=== PATIENT | female | born 1940 | race Caucasian/White ===

== ENCOUNTER 2016-07-02 11:22 | Day surgery (SDC) | payer MEDICARE, OTHER ==
[~2016-07-02 11:22] MED LIST: ATOR80TA PO; CITA40TA PO; CLOB15CR3 TOP; CYCL5TAB PO; EZET10TA PO; FLUT16SP NS; GABA800T PO; HYDR-3740 PO; LEVO88TA3 PO; LISI-567 PO; MULT-1018 PO; OMEG1CAP56 PO; RANI150T11 PO; RITUX IV
[2016-07-03] MEDS ORDERED: OMEP40CA36 PO (08:54)
== END 2016-07-02 23:59 | disposition home or self-care (01) ==
LOC: SAS 11:22
PROVIDERS: ATTEND Orthopaedic Surgery
DX: T84.020A Dislocation of internal right hip prosthesis, initial encounter (principal); Z53.8 Procedure and treatment not carried out for other reasons

== ENCOUNTER 2016-07-03 08:20 | Inpatient (IN) | payer MEDICARE, OTHER ==
[2016-07-03] VITALS (15 sets, daily range): BP systolic 97–148; BP diastolic 51–75; PULSE 75–97; RESP 13–21; O2SAT 93–98
[~2016-07-03] VITALS: Ht 156.2 cm; Wt 71.9 kg
[~2016-07-03 08:20] MED LIST changes: +CeFAZolin Inj 2 GM in IV Premix 1 EACH IV ONE; +Vancomycin Inj 1,000 MG in IV Premix 1 EACH IV ONE
[2016-07-03] MEDS ORDERED: OMEP40CA36 PO (08:54)
[2016-07-03] MEDS: Lactated Ringer's 1,000 ML IV SCH ×3 (09:07→16:19)
--- NOTE | 2016-07-03 10:08 | PCM.HPANE ---
Patient Data Date of Service: July 03, 2016 Surgeon Admitting Provider: Attending Provider:Gagan Rice DO Primary Care Physician:Elza Lopez Other Provider:Evelina Johansen Anesthesia Reason for Visit Right Hip Instability Ht/WT & BMI Height (Feet): 5 Height (Inches): 1.50 Weight (Kilograms): 71.9 Body Mass Index 29.00 Allergies Coded Allergies: oxycodone (Verified Allergy, Intermediate, CONFUSION, 04/04/16) Sulfa (Sulfonamide Antibiotics) (Verified Allergy, Unknown, UNKNOWN, ) codeine (Verified Allergy, Unknown, UNKNOWN, 04/04/16) cyproheptadine HCl (Unverified Allergy, Unknown, UNKNOWN, 04/04/16) propoxyphene HCl (Unverified Allergy, Unknown, UNKNOWN, 04/04/16) baclofen (Unverified Adverse Reaction, Severe, MUSCLE WEAKNESS,DIZZINESS, 04/04/16) hydrocodone bitartrate (Verified Adverse Reaction, Severe, itchy-take with benadryl, 04/04/16) hydromorphone (Verified Adverse Reaction, Severe, RESP. DEPRESSION, ) morphine (Verified Adverse Reaction, Severe, CONFUSION, 04/04/16) Past Anesthesia History Anesthesia History: Denies:: Abnormal Airway, Anesthesia Reactions, Difficult Intubation, Fam Anesthesia Reaction, Fam Malignant Hypertherm, Malignant Hyperthermia Diabetes History Hx Diabetes?: No MRSA MRSA: No Medications Blood Thinner: Aspirin Home Meds Incl Beta Peyton: No Reported Medications Omeprazole 40 Mg Capsule.dr40 Mg PO DAILY Ref 0 07/03/16 Ezetimibe (Zetia)10 Mg Pucuaz07 Mg PO DAILY 30 Days Ref 0 06/28/16 Ranitidine (Zantac)150 Mg Wlejih639 Mg PO BID 06/28/16 Levothyroxine (Synthroid)88 Mcg Smhgxg22 Mcg PO DAILY Ref 0 06/28/16 Rituximab (Rituxan)100 Mg/10 Ml Vial1,000 Mg IV y9rstfgk last infusion 03/201606/28/16 Gabapentin (Neurontin)800 Mg Zdyiix537-5,600 Mg PO DAILY PRN For Pain 30 Days Ref 0 06/28/16 Gabapentin (Neurontin)800 Mg Tablet1,600 Mg PO HS 30 Days Ref 0 06/28/16 Multivitamin (Multi Vitamin Daily)1 Each Tablet1 Each PO DAILY 30 Days Ref 0 06/28/16 Lisinopril 20 Mg Tytwql80 Mg PO DAILY 30 Days Ref 0 06/28/16 Hydrocodone-Acetaminophen 10-325 mg 1 Each Tablet1 Tablet PO DAILY PRN For Pain Ref 0 06/28/16 Fluticasone Propionate (Fluticasone Propionate Nasal)16 Gm [place].susp1 [place] NS BID #16 GM Ref 0 06/28/16 Many-3 Fatty Acids/Fish Oil (Many 3 1,000 mg Softgel)1 Each Capsule1 Each PO DAILY 06/28/16 Cyclobenzaprine 5 Mg Tablet5 Mg PO TID PRN Spasm 06/28/16 Clobetasol Propionate/Emoll (Clobetasol Emollient 0.05% Crm)15 Gm Cream..g.1 Appl TOP BID PRN skin irritation #1 TUBE 06/28/16 Citalopram Hydrobromide (Celexa)40 Mg Szcqyb69 Mg PO DAILY Ref 0 06/28/16 Atorvastatin (Lipitor)80 Mg Gbjuyr38 Mg PO DAILY Ref 0 06/28/16 Discontinued Reported Medications Ezetimibe (Zetia)10 Mg Ewnkdt32 Mg PO HS 30 Days Ref 0 02/08/16 Cyanocobalamin/Folic Acid (Vitamin U57-Ptpjw Acid Tablet)1 Each Tablet1 Each PO DAILY 02/07/16 Aspirin 325 Mg Etoqsb393 Mg PO DAILY 02/07/16 Levothyroxine 88 Mcg Gfsfjv79 Mcg PO DAILY #90 02/07/16 Rituximab (Rituxan)100 Mg/10 Ml VialUnknown Dose IV every 6 months 02/07/16 Docosahexanoic Acid/Epa (Fish Oil Concentrate Softgel)1 Each Capsule1 Capsule PO DAILY 02/07/16 Hydrocodone-Acetaminophen 10-325 mg 1 Each Tablet1 Tab PO HS #90 02/07/16 Cyclobenzaprine 5 Mg Tablet5 Mg PO TID PRN Spasm 02/07/16 Clobetasol Propionate 15 Gm Oint...g.15 Gm TP DAILY PRN rash 02/07/16 Citalopram 40 Mg Rfwdks90 Mg PO QAM #90 02/07/16 Multivitamin (Multi Vitamin Daily)1 Each Tablet1 Each PO DAILY 30 Days Ref 0 07/01/14 Lisinopril 20 Mg Tvenzy08 Mg PO DAILY 30 Days Ref 0 07/01/14 Atorvastatin Calcium 80 Mg Pwdfzf62 Mg PO HS 30 Days Ref 0 10/22/13 Discontinued Scripts Gabapentin (Neurontin)800 Mg Tablet1,600 Mg PO HS 30 Days Ref 0 Prov:BISHOP SILVA DO 02/07/16 History History of ENT Problems?: Yes HEENT History: Positive for:: Cataracts Dysphagia (MILD) Sinus Problem (HX of infections) Denies:: Abnormal Airway Difficult Intubation Hearing Problem Denture Type: None Teeth Condition: Within Normal Limits Hx of Heart Problems?: Yes Cardiovascular History: Positive for:: Heart Murmur Valvular Heart Disease (echo 2014- ef 75-80%) Denies:: AICD Atrial Fibrillation Cardiac Surgery Chest Pain Congestive Heart Failure Edema Hypertension Irregular Heartbeat Pacemaker Thrombophlebitis Hx of Respiratory Problem?: Yes Respiratory History: Denies:: Asthma COPD Chest Surgery Cough Dyspnea Emphysema Hemoptysis Oxygen Administration Pneumonia (hx of) Tuberculosis Use of C-PAP Machine Hx Neurologic Problems?: No Neurological History: Denies:: CVA Dementia Multiple Sclerosis Parkinson's Disease Seizures Hx of GI Problems?: Yes Other GI Pertinent History: prior hx of collagenous colitis Hx of Problems?: Yes Genitourinary History: Positive for:: Kidney Stones (20 years ago) Denies:: HX of Hemodialysis (CKD III) Urinary Tract Infection (past hx of, not current) HX of Peritoneal Dialysis: No Female Hx: Positive for:: Problems with Breasts? (lump, biopsied 15 years ago) Denies:: Currently (post menopausal) Endometriosis Pelvic Inflammatory Skin History: Positive for:: History Skin Disorders? (pt reports lichens sclerosis, eczema) Denies:: Pressure Ulcers Hx Musculoskeletal Problems?: Yes Musculoskeletal History: Positive for:: Back Injury (Lami L3-4- still chronic back pain) Degenerative Joint Joint Replacement (R knee, R hip, L humerus) Musculoskeletal Trauma (repetetive dislocation right hip-current admission problem) Rheumatoid Arthritis (managed with rituxan infusion- last dosed mar 2016) Hx of Psycho/Social Problems?: Yes Psycho Social History: Positive for:: Anxiety Denies:: Bipolar Disorder Hx Depression Suicide Attempt Hx Surgeries?: Yes (lami, right rotator cuff, right hip arthroplasty- 4 relocations) Hx Any Other Health Problems?: Yes Other History: Positive for:: Hospitalization (Pneumonia; Childbirth) Thyroid Disease Denies:: Cancer Endocrine Disease History Blood Transfusions: Denies:: Blood Transfuse Reaction Blood Transfusions Hx Diabetes: No Hx Alcohol Use: NoHx Substance Use: No Smoking Status: Former Smoker Have You Smoked inLast 12 mo: No Stop/Bang S-Snoring: Do You Snore Loudly: No T-Tired: feel tired, fatigued: Yes O-Obsered: Observed not breath: No P-Blood Pressure: treated: Yes B- Body Mass Index > 35 kg/m2: No A- Age over 50: Yes N- Neck Large Circumference: No G- Gender Male: No ANNIA Total Score: 3 ANNIA Risk Assessment: High Risk, =/>3 Yes Risk Assessment Category Category 1A: Patient has history of documented sleep apnea, and HAS NOT received any narcotic, sedative or anesthesia administration during this stay. Category 1B: Patient has history of documented sleep apnea, and HAS received any narcotic , sedative or anesthesia administration during this stay Category 2: Patient has SUSPECTED Obstructive Sleep Apnea, and HAS received any narcotic , sedative or anesthesia administration during this stay. Category 3: Patient has SUSPECTED Obstructive Sleep Apnea and HAS NOT received narcotic, sedative or anesthesia administration during this stay. Category 4: Outpatient in Procedural Areas with known sleep apnea or who screen positive for High Risk via the STOP/BANG questionnaire. Exam Exam Vital Signs Vital Signs Date Time Temp Pulse Resp B/P Pulse Ox O2 Delivery O2 Flow Rate FiO2 07/03/16 08:44 36.4 81 16 121/60 96 Room Air General Appearance: Alert, Oriented X3, Cooperative, No Acute Distress HEENT/AIRWAY: MP 2 Lungs: Normal Air Movement Heart: Exam Unremarkable Plan Impression Patient chart reviewed, patient interviewed and anesthestic plan with risks, benefits, and alternatives discussed, and informed consent obtained. ASA Physical Status: ASA2 Mod Systemic Disease Anesthetic Plan: SAB Bene/Risks/Altern/Consents: Yes HP Complete Prior to Induction: Yes Natalio Conde MD July 03, 2016 09:13
[2016-07-03] MEDS ORDERED: Bupivacaine Liposome 1.3% 20 mL Inj INFILTRATE ONE (10:24)
[2016-07-03] MEDS ORDERED: Sodium Chloride Bacteriostatic 30 mL Inj INJ ONE (10:24)
[2016-07-03] MEDS ORDERED: Bupivacaine 0.5%/EPI 50 mL Inj INFILTRATE ONE (10:24)
[2016-07-03] MEDS ORDERED: Bupivacaine Liposome 1.3% 20 mL Inj ONE (10:33)
[2016-07-03] MEDS ORDERED: Tranexamic Acid 100 mg/mL 10 mL Inj ONE ×2 (10:35)
[2016-07-03] MEDS ORDERED: 0.9% Sodium Chloride 100 ML ONE ×2 (10:36)
[2016-07-03] MEDS ORDERED: Lactated Ringer's 1,000 ML IV ONE (12:34)
[2016-07-03] MEDS ORDERED: Magnesium Hydroxide 10 mL Oral Concentration PO PRN (12:55)
[2016-07-03] MEDS ORDERED: diphenhydrAMINE 25 mg Capsule PO PRN (12:55)
[2016-07-03] MEDS ORDERED: Polyethylene Glycol (PEG) 17 Gm Powder PO PRN (12:55)
[2016-07-03] MEDS ORDERED: Ondansetron 2 mg/mL 2 mL Inj IVPUSH PRN ×2 (12:55→13:50)
[2016-07-03] MEDS ORDERED: Acetaminophen IV 1,000 MG in IV Premix 1 EACH IV PRN (12:55)
[2016-07-03 13:09] LABS: APPEARANCE,URINE HAZY (CLEAR,HAZY); COLOR,URINE STRAW (YELLOW); OCCULT BLOOD,URINE NEGATIVE (NEGATIVE); PH,URINE 6.5 (5.0-8.0); UROBILINOGEN,URINE NORMAL (NORMAL)
[2016-07-03] MEDS ORDERED: fentaNYL-PF 50 mCg/mL 2 mL Inj ONE ×2 (13:34→15:25)
[2016-07-03] MEDS ORDERED: Lactated Ringer's 1,000 ML IV SCH (13:47)
[2016-07-03] MEDS ORDERED: Lactated Ringer's 500 ML IV PRN (13:47)
[2016-07-03] MEDS ORDERED: HYDROmorphone 1 mg/mL Inj IVPUSH PRN ×3 (13:50→15:55)
[2016-07-03] MEDS: fentaNYL-PF 50 mCg/mL 2 mL Inj IVPUSH PRN ×3 (13:50→14:27)
[2016-07-03] MEDS ORDERED: Phenylephrine 10,000 mCg/mL Inj IVPUSH PRN (13:50)
[2016-07-03] MEDS ORDERED: Dexamethasone 4 mg/mL Inj IVPUSH PRN (13:50)
[2016-07-03] MEDS ORDERED: MetoCLOpramide 5 mg/mL 2 mL Inj IVPUSH PRN (13:50)
[2016-07-03] MEDS ORDERED: EPHEDrine Sulfate 50 mg/mL Inj IVPUSH PRN (13:50)
--- NOTE | 2016-07-03 14:03 | OP ---
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 PROCEDURE: Revision, right total hip arthroplasty. SURGEON: Gagan Rice DO SENIOR TECHNICAL ANALYST: Deb Wooten PA-C. INDICATIONS: Patient is a 76-year-old female, who underwent a right total hip arthroplasty in July 2012. She has had multiple episodes of instability since that time which has been quite disabling for her and she wished to proceed with a revision right total hip arthroplasty. We performed an aspiration of the hip to rule out infection and discussed the risks, benefits, and possible complications of surgery including, but not limited to injury to nerves and vessels, infection, bleeding, incomplete relief of symptoms, recurrent instability. The patient had good understanding. All questions were answered and she wished to proceed. A instructor adjunct surgical technician was required for the successful completion of this procedure. PROCEDURE IN DETAIL: The patient was brought to the operating room. She was given a preoperative antibiotic and 1 g TXA preoperatively. Placed comfortably into the lateral decubitus position. The right hip was sterilely prepped and draped. An incision was made using the distal portion of her previous incision and the proximal portion slightly more anterior. Dissection was carefully carried to the subcutaneous tissue. Electrocautery was used for hemostasis. The iliotibial band was incised over the lateral aspect of the femur and the Charnley retractor was then placed. A split was then made in the gluteus medius between the junction of the anterior one-third, posterior two-thirds, and Hohmann retractors were placed on either side of the femoral neck. An anterior sleeve of tissue was then released off of the proximal femur and a triangular portion of capsule was removed. The hip was then dislocated and the femoral head was removed with a tamp. During this time, it was noted that the patient had a defect in the posterior capsule, about 3 cm in size, which was likely contributing to her instability. I then removed the soft tissue about the acetabular component and placed retractors. Used a large fragment screw in order to pry out the acetabular polyethylene liner. I then trialed the hip with a +7 lateralized liner as I felt that the main problem with instability was due to lack of offset. We again placed a -3/32 head with the lateralized liner. This allowed for excellent range of motion and great stability throughout her range of motion, and therefore, I elected to use these components without having to revise the whole prosthesis. The wound was irrigated and the new Clement +7, 32 x 48 mm Continuum longevity cup was impacted into position. I then placed a new -3.5, 32 head, impacted this into position. The hip was located, felt to be quite stable. The wound was copiously irrigated and then I did the repair of the anterior approach with #5 Ethibond to repair the capsule. The gluteus medius was repaired with #5 Ethibond. The remainder of the gluteus medius and vastus lateralis was repaired with #1 Surgilon. Next, I performed a posterior repair, carefully dissecting the posterior capsular tissue which was not adherent, and care was taken to ensure that the sciatic nerve was not damaged. This posterior capsular tissue was dissected free of the more posterior portion of the hip and then repaired back to the posterior aspect of the trochanter using #5 Ethibond suture in a mattress fashion. This had the effect of improving stability and limiting internal rotation to a more physiologic level, as before this repair, the patient could be taken to about 90 degrees of internal rotation. Afterwards, she could be taken to about 30-40 degrees. Next, iliotibial band was repaired with #1 Surgilon and 0-Vicryl. The subcu was closed with 2-0 Vicryl. The skin was closed with a running interrupted V-Loc suture. A mixture of Marcaine and Exparel was added as an adjunct local anesthetic. Sterile dressings were applied. Patient tolerated the procedure well. Blood loss was 100 cc. POSTOPERATIVE PROTOCOL: Have the patient weightbear to tolerance. Use a walker for ambulation. Would like her to use anterior and posterior hip precautions, and will plan aspirin for DVT prophylaxis and oral Dilaudid for pain medication, as she is very sensitive to all pain medications.
[2016-07-03] MEDS: Ketorolac 15 mg/mL Inj IVPUSH PRN (14:11)
--- NOTE | 2016-07-03 14:36 | DRSVH ---
PROCEDURE: X-RAY PELVIS W/LAT HIP (RT) ([id number]) INDICATIONS: post op TECHNIQUE: AP pelvis with lateral view(s) of the right hip(s). COMPARISON: [facility], CR, XR PELVIS W LATERAL HIP RT, 03/22/2016, 10:46. [facility], CR, XR PELVIS W LATERAL HIP RT, 02/07/2016, 11:08. FINDINGS: Bones: Postoperative changes related to a right hip arthroplasty are present. No fracture or disloca tions are evident. Degenerative changes of the sacroiliac joints, left hip, pubic symphysis are tho lar. Soft tissues: The visualized bowel gas pattern is normal. No suspicious soft tissue calcifications. Soft tissue air is seen overlying the right hip. IMPRESSION: Right hip arthroplasty without fracture or dislocation. Expected postoperative changes w ithin the adjacent soft tissues. Dictated by: Adriel Manzo M.D. on 07/03/2016 at 13:33 Approved by: Adriel Manzo M.D. on 07/03/2016 at 13:35
[2016-07-03] MEDS ORDERED: Phenylephrine/NS 100 mCg/mL 10 mL Syringe IVPUSH ONE (15:25)
[2016-07-03] MEDS ORDERED: Propofol 10,000 mCg/mL 20 mL Inj ONE (15:25)
[2016-07-03] MEDS ORDERED: Ondansetron 2 mg/mL 2 mL Inj ONE (15:25)
[2016-07-03] MEDS ORDERED: Dexamethasone 4 mg/mL Inj ONE (15:25)
[2016-07-03] MEDS: HYDROmorphone PCA 0.2 mg/mL 30 mL Inj IV PRN (15:50)
[2016-07-03] MEDS: hydrOXYzine Pamoate 25 mg Capsule PO PRN (15:59)
--- NOTE | 2016-07-03 16:03 | NUR ---
Physical Therapy: PT order received with instructions for anterior and posterior hip precautions. Called ortho PA to clarify the specific anterior precautions. PA unable to locate MD for clarification and requested PT hold until am so that further clarification can be made. Per RN, pt very painful this pm. PT to follow up 07/04 once clarification is received regarding precautions.
[2016-07-03] MEDS: Sodium Chloride LOK Flush 10 mL Syringe IV SCH ×2 (16:30→23:34)
--- NOTE | 2016-07-03 18:17 | NUR ---
Post Op Patient received to room 1015 s/p Right total hip. Patient with bulky abd dressing cdi to hip. Patient with pain 7/10 Counseling Department Chair Dilaudid initiated and po Vistaril given . Patient more comfortable upon last check.
[2016-07-03] MEDS: 0.9% Sodium Chloride 1,000 ML IV SCH ×2 (18:28→22:53)
[2016-07-03] MEDS: CeFAZolin Inj 2 GM in IV Premix 1 EACH IV SCH (18:28)
[2016-07-03] MEDS: Fluticasone 0.05% 15 Spray/2 Gm 16 Gm Nasal Spray NASAL SCH (20:30)
[2016-07-03] MEDS: Senna-Docusate 8.6-50 mg Tablet PO SCH (20:30)
[2016-07-04] VITALS (12 sets, daily range): BP systolic 104–130; BP diastolic 60–70; PULSE 80–95; RESP 15–18; O2SAT 92–98
[2016-07-04] MEDS: 0.9% Sodium Chloride 1,000 ML IV SCH ×3 (01:50→22:54)
[2016-07-04] MEDS: CeFAZolin Inj 2 GM in IV Premix 1 EACH IV SCH (01:59)
--- NOTE | 2016-07-04 05:22 | NUR ---
Pain Patient woke up with complaints of pain to right hip. Education provided again on PST SPECIALIST and how to use it. States understanding. Encouraging to push PST SPECIALIST button if/when needed. Ice pack applied to surgical site with effective results. Hutchins to be removed at 0600. Patient aware and agreeable.
[2016-07-04] MEDS: hydrOXYzine Pamoate 25 mg Capsule PO PRN ×5 (06:48→21:14)
[2016-07-04] MEDS ORDERED: Alum-Mag Hydrox-Simeth 30 mL Suspension PO PRN (06:55)
[2016-07-04 07:08] LABS: BASOPHILS % (AUTO) 0.2 % (0-3); EOSINOPHILS % (AUTO) 0 % (0-5); MONOCYTES % (AUTO) 9.3 % (4-12); Mean Corpuscular Hemoglobin 30.2 pg (27.0-35.0); Mean Corpuscular Volume 96.9 fL (81-100); NEUTROPHILS % (AUTO) 83.6 % (40-74); Platelet Count 239 bil/L (150-400)
[2016-07-04] MEDS: Sodium Chloride LOK Flush 10 mL Syringe IV SCH ×3 (08:30→22:54)
[2016-07-04] MEDS: Fluticasone 0.05% 15 Spray/2 Gm 16 Gm Nasal Spray NASAL SCH ×2 (08:30→20:30)
--- NOTE | 2016-07-04 10:25 | PCM.PNORTH ---
Subjective Date of Service: July 04, 2016 Visit Information: Reason for Visit Right Hip Instability Surgery/Surgery Date right revision hip arthroplasty 07/03/2016 Post-Op Day # 1 Date of Admission: July 03, 2016 at 15:24 Hospital Day # Subjective Pain is well controlled with Dilaudid ENGINEERING SURVEYOR. However she complains of spasms. Hutchins has been discontinued. Patient has been up a couple of times today. Objective Exam Objective Patient is seen lying in bed Vital Signs and I/O Vital Sign - Last Date Time Temp Pulse Resp B/P Pulse Ox O2 Delivery O2 Flow Rate FiO2 07/04/16 06:28 16 95 07/04/16 06:25 36.7 95 130/70 Nasal Cannula 3.00 Intake and Output 07/03/16 07/03/16 07/04/16 Cumulative From/Thru 15:00 23:00 07:00 06/28/16 10:51 - 07/04/16 06:17 Intake Total 1250 ml 950 ml 1383 ml 3583 ml Output Total 300 ml 140 ml 500 ml 940 ml Balance 950 ml 810 ml 883 ml 2643 ml Intake Oral 150 ml 150 ml IV Total 1250 ml 800 ml 1383 ml 3433 ml Output Urine Total 200 ml 140 ml 500 ml 840 ml Estimated Blood Loss 100 ml 100 ml # Bowel Movements 0 0 Lab & Micro Results Laboratory Tests Test 07/03/16 12:52 07/04/16 06:00 Urine Color Straw (YELLOW) Urine Appearance Hazy (CLEAR,HAZY) Urine pH 6.5 (5.0-8.0) Urine Specific [place] 1.015 (1.003-1.035) Urine Protein Negativemg/dL (NEG,TRACE) Urine Glucose (UA) Negativemg/dL (NEGATIVE) Urine Ketones Negativemg/dL (NEGATIVE) Urine Occult Blood Negative (NEGATIVE) Urine Nitrite Negative (NEGATIVE) Urine Bilirubin Negative (NEGATIVE) Urine Urobilinogen Normalmg/dL (NORMAL) Urine Leukocyte Esterase Negative (NEGATIVE) Urine RBC 3-10/hpf (0-2) Urine WBC 0-5/hpf (0-5) Urine Epithelial Cells Occasional/hpf (NONE-MOD) Urine Crystals None seen (NONE SEEN) Urine Bacteria None/hpf (NONE-FEW) Urine Hyaline Casts None/lpf (NONE) Urine Granular Casts None seen (NONE SEEN) Urine Waxy Casts None seen (NONE SEEN) Urine Red Blood Cell Casts None seen (NONE SEEN) Urine White Blood Cell Casts None seen (NONE SEEN) Urine Mucus None seen (None Seen) Urine Trichomonas None seen (NONE SEEN) Urine Yeast None (NONE SEEN) Urinalysis Comment None Urine Culture Reflexed Not indicated White Blood Count 12.6th/mm3 (3.8-10.1) Red Blood Count 3.21mil/mm3 (3.90-5.20) Hemoglobin 9.7g/dL (12.0-15.6) Hematocrit 31.1% (35.0-46.0) Mean Corpuscular Volume 96.9fL (81-100) Mean Corpuscular Hemoglobin 30.2pg (27.0-35.0) Mean Corpuscular Hemoglobin Concent 31.2% (32.0-37.0) Red Cell Distribution Width 13.9% (12.3-15.4) Platelet Count 239bil/L (150-400) Neutrophils (%) (Auto) 83.6% (40-74) Lymphocytes (%) (Auto) 6.6% (14-46) Monocytes (%) (Auto) 9.3% (4-12) Eosinophils (%) (Auto) 0% (0-5) Basophils (%) (Auto) 0.2% (0-3) Sodium Level 139mEq/L (134-144) Potassium Level 4.9mEq/L (3.5-5.2) Chloride Level 103mEq/L (97-108) Carbon Dioxide Level 24mmol/L (18-29) Blood Urea Nitrogen 25mg/dL (8-27) Creatinine 0.91mg/dL (0.57-1.00) Estimat Glomerular Filtration Rate 86mL/min (>59) Glucose Level 122mg/dL (60-99) Calcium Level 8.8mg/dL (8.5-10.1) Microbiology 07/03/16 Gram Stain - Final, Resulted 07/03/16 Culture & Sensitivity, Resulted Pending 07/03/16 Anaerobic Culture, Resulted Pending Result Diagram: 07/04/16 0600 07/04/16 0600 General Appearance: Alert, Oriented X3, Cooperative, No Acute Distress Extremities: Distal Pulses Palpable, No Compartment Syndrom Noted, Thigh & Calf Soft/Nontender Postop Sensory Motor: Distal Motor Intact, NVI Distally SURGICAL WOUND : Wound Location/Description Surgical dressing is clean and dry. The top piece of tape is a little rolled up on the edges but the dressing is intact. No drainage seen Activity: Activity per PT, Ambulate with PT Catheters: None Assessment & Plan Impression Postop day 1 right hip revision arthroplasty Problems: Plan Weightbearing: Weightbearing as tolerated with walker DVT prophylaxis: aspirin 325 mg twice a day 6 weeks Physical therapy for transfers, progressive ambulation, therapeutic exercise DC abduction pillow today and place a regular pillow between the knees when in bed Due to chronic back pain, log roll patient every few hours as needed fro comfort Vistaril increased to 1-2 q4h PT: Anterior and posterior hip precaution positions due to history of posterior dislocations 5 and anterolateral repair Wound care: PA will change dressing on postop day 2 Discharge plan: Discharge home in 1-2 days. Follow-up plan: In 2 weeks at [facility] with PA for wound check and at [address] Rice with x-rays Pain Management: Dilaudid ENGINEERING SURVEYOR, Toradol, Vistaril VTE Prophylaxis: SCDs, Other (aspirin) Resuscitation Status: CPR: Attempt Resuscitation Ocean ViewDeb Fernandez PA-C July 04, 2016 10:25
[2016-07-04] MEDS: Pantoprazole 20 mg ER24 Tablet PO SCH (10:31)
[2016-07-04] MEDS: Senna-Docusate 8.6-50 mg Tablet PO SCH ×2 (10:32→21:14)
[2016-07-04] MEDS: Ketorolac 15 mg/mL Inj IVPUSH PRN ×2 (11:21→19:06)
--- NOTE | 2016-07-04 11:45 | NUR ---
Evaluation completed. Please go to "Notes" then click on "Assessments and Notes" (bottom left corner of screen). Then select appropriate discipline tab on top of screen.
--- NOTE | 2016-07-04 14:24 | NUR ---
Evaluation completed. Please go to "Notes" then click on "Assessments and Notes" (bottom left corner of screen). Then select appropriate discipline tab on top of screen.
--- NOTE | 2016-07-04 15:57 | NUR ---
Social Work-initial assessment/readiness for discharge: Data:See initial assessment. Pt is a 76 y/o female who was admitted on 07/03/16 for right hip per H&P. Pt's insurance is [employer] and PCP is KUSHAL Kang. EMR reviewed. Pt's readmission score is 4- high risk. SW met with pt at bedside to discuss discharge planning, SW role explained. Pt is alert and oriented x3. Pt resides at home alone, but her daughter lives next door. Pt confirms her daughter will be staying with her after surgery and she has arranged for caregiver when her daughter is gone. Pt has a single level home with a few stairs to enter. Pt uses either a fww or cane at baseline and drive. Pt has history with [facility] and [facility].Pt has no [facility] care insurance or [facility] benefits. SW discussed DPOA/ advanced directive, pt confirms she has completed this, SW encouraged a copy to be brought in. PT and OT have cleared pt for home with outpt PT services. Pt's daughter to provide transport home. .SW provided phone number and plan on white in room. No anticipated discharge needs. SW will continue to follow if needs arise. Assessment:Pt who is independent at baseline. Plan:Pt to discharge home when medically stable via POV. Pt's daughter to stay with pt post discharge and caregivers have also been arranged. PT and OT have cleared pt for home with outpt services. No anticipated discharge needs. SW will continue to follow if needs arise. HUA Jenkins Addendum: 07/04/16 at 1601 by MELVIN GAMINO Amended: Links added.
--- NOTE | 2016-07-04 16:16 | NUR ---
Pain, Urination Patient has some pain to surgical area this shift, reports spasm. Spasm responding to increased dose of anti-spasm medication. Patient using RAKING MACHINE OPERATOR appropriately. Patient able to urinate without difficulty post oliver catheter removal. Care is ongoing.
[2016-07-04] MEDS: HYDROmorphone PCA 0.2 mg/mL 30 mL Inj IV PRN (23:08)
[2016-07-05 00:05] VITALS: BP 133/67; PULSE 97; RESP 17; O2SAT 94
[2016-07-05] MEDS: hydrOXYzine Pamoate 25 mg Capsule PO PRN ×5 (01:43→21:29)
[2016-07-05] MEDS: Ketorolac 15 mg/mL Inj IVPUSH PRN (01:44)
--- NOTE | 2016-07-05 02:21 | NUR ---
Pain, CRM MARKETING ANALYST nurse discussed at length with pt about switching from the CRM MARKETING ANALYST dilaudid to oral pain medication. pt has a lot of concerns about pain control off of the IV dilaudid. the different oral pain medications that have been ordered for pt were explained to pt and that she still had IV dilaudid available for breakthrough pain if needed. pt asked that she not be taken off the CRM MARKETING ANALYST at bedtime but is willing to try oral pain medication in the morning.
[2016-07-05 04:55] VITALS: BP 119/62; PULSE 86; RESP 17; O2SAT 95
[2016-07-05 06:11] LABS: BASOPHILS % (AUTO) 0.4 % (0-3); MONOCYTES % (AUTO) 12.4 % (4-12); Mean Corpuscular Hemoglobin 30.3 pg (27.0-35.0); Mean Corpuscular Volume 96.2 fL (81-100); NEUTROPHILS % (AUTO) 69.6 % (40-74); Platelet Count 232 bil/L (150-400)
[2016-07-05] MEDS: HYDROcodone-APAP 10-325 mg PO PRN ×2 (06:31→11:12)
[2016-07-05] MEDS: Fluticasone 0.05% 15 Spray/2 Gm 16 Gm Nasal Spray NASAL SCH ×2 (07:18→15:07)
[2016-07-05 07:30] VITALS: RESP 16; O2SAT 96
[2016-07-05 09:37] VITALS: BP 132/64; PULSE 98; RESP 18; O2SAT 91
[2016-07-05] MEDS: Pantoprazole 20 mg ER24 Tablet PO SCH (11:08)
[2016-07-05] MEDS: Sodium Chloride LOK Flush 10 mL Syringe IV SCH ×2 (11:09→17:32)
[2016-07-05] MEDS: Senna-Docusate 8.6-50 mg Tablet PO SCH ×2 (11:10→21:28)
--- NOTE | 2016-07-05 11:23 | PCM.PNORTH ---
Subjective Date of Service: July 05, 2016 Visit Information: Reason for Visit Right Hip Instability Surgery/Surgery Date right total hip revision Post-Op Day # 2 Date of Admission: July 03, 2016 at 15:24 Hospital Day # Subjective Patient is ambulating well with physical therapy however she still needs assistance with transfers especially getting up out of the bed. She complains of incisional pain and spasms throughout the right lower extremity. ATTIC BLOWER has been discontinued. She is taking hydrocodone for pain but it does not seem to be quite strong enough. Postop General: No Shortness of Breath, No Chest Pain, Good Appetite Pain Management: PO Objective Exam Objective Patient was seen in bed Vital Signs and I/O Vital Sign - Last Date Time Temp Pulse Resp B/P Pulse Ox O2 Delivery O2 Flow Rate FiO2 07/05/16 10:51 Room Air 07/05/16 09:37 36.6 98 18 132/64 91 07/04/16 12:07 3.00 Intake and Output 07/04/16 07/04/16 07/05/16 Cumulative From/Thru 15:00 23:00 07:00 06/28/16 10:51 - 07/05/16 06:16 Intake Total 800 ml 2244 ml 1080 ml 7707 ml Output Total 1050 ml 1150 ml 3140 ml Balance 800 ml 1194 ml -70 ml 4567 ml Intake Oral 800 ml 1520 ml 800 ml 3270 ml IV Total 724 ml 280 ml 4437 ml Output Urine Total 1050 ml 1150 ml 3040 ml Estimated Blood Loss 100 ml # Bowel Movements 0 0 0 0 Lab & Micro Results Laboratory Tests Test 07/05/16 05:22 White Blood Count 9.2th/mm3 (3.8-10.1) Red Blood Count 3.14mil/mm3 (3.90-5.20) Hemoglobin 9.5g/dL (12.0-15.6) Hematocrit 30.2% (35.0-46.0) Mean Corpuscular Volume 96.2fL (81-100) Mean Corpuscular Hemoglobin 30.3pg (27.0-35.0) Mean Corpuscular Hemoglobin Concent 31.5% (32.0-37.0) Red Cell Distribution Width 14.0% (12.3-15.4) Platelet Count 232bil/L (150-400) Neutrophils (%) (Auto) 69.6% (40-74) Lymphocytes (%) (Auto) 15.3% (14-46) Monocytes (%) (Auto) 12.4% (4-12) Eosinophils (%) (Auto) 2.0% (0-5) Basophils (%) (Auto) 0.4% (0-3) Sodium Level 143mEq/L (134-144) Potassium Level 4.7mEq/L (3.5-5.2) Chloride Level 106mEq/L (97-108) Carbon Dioxide Level 25mmol/L (18-29) Blood Urea Nitrogen 19mg/dL (8-27) Creatinine 0.86mg/dL (0.57-1.00) Estimat Glomerular Filtration Rate 92mL/min (>59) Glucose Level 100mg/dL (60-99) Calcium Level 8.8mg/dL (8.5-10.1) Microbiology 07/03/16 Gram Stain - Final, Resulted 07/03/16 Culture & Sensitivity - Preliminary, Resulted 07/03/16 Anaerobic Culture - Preliminary, Resulted Result Diagram: 07/05/1652107/05/16 05 General Appearance: Alert, Oriented X3, Cooperative, No Acute Distress Extremities: Distal Pulses Palpable, No Compartment Syndrom Noted, Thigh & Calf Soft/Nontender Postop Sensory Motor: Distal Motor Intact, NVI Distally SURGICAL WOUND : Wound Location/Description Right hip: Surgical dressing is removed. Wound is well approximated. Steri- Strips are intact. There is mild ecchymosis present and mild swelling. There is no erythema or drainage present. The wound was cleansed with hydrogen peroxide and a Silverlon and Island dressing applied. Activity: Activity per PT, Ambulate with PT Catheters: None Assessment & Plan Impression Status post right total hip revision Problems: Plan Weightbearing: Weightbearing as tolerated with walker DVT prophylaxis: aspirin 325 mg twice a day 6 weeks Continue Physical therapy for transfers, progressive ambulation, therapeutic exercise Regular pillow between the knees when in bed Due to chronic back pain, log roll patient every few hours as needed fro comfort Vistaril increased to 1-2 q4h PT: Anterior and posterior hip precaution positions due to history of posterior dislocations 5 and anterolateral repair Wound care: Dressing is changed today Analgesia: oral Dilaudid is available instead of hydrocodone. Patient chronically takes hydrocodone for her back pain. We will plan on discharging her home with oral Dilaudid to use instead of the hydrocodone for a couple of weeks. By then she should be able to return to her usual dose of hydrocodone. Discharge plan: Discharge home tomorrow . Follow-up plan: In 2 weeks at [facility] with GRAHAM for wound check and at [address] Rice with x-rays Pain Management: Dilaudid, Toradol, Vistaril VTE Prophylaxis: SCDs, Other (aspirin) Resuscitation Status: CPR: Attempt Resuscitation Deb Wooten PA-C July 05, 2016 11:23
--- NOTE | 2016-07-05 11:59 | PCM.DIORTH ---
Ortho Discharge Instruction Date of Service: July 05, 2016 Dates of Hospitalization Date of Hospital Admission July 03, 2016 at 15:24 Providers Admitting Physician: Gagan Rice DO Primary Care Physician: Elza Lopez Attending Physician: Gagan Rice DO Diet Discharge Diet: No restrictions Activity Discharge Activity-General: Be up and about, Balance rest and activity, Elevate & ice extremity Right Lower Extremity: Weight Bearing as tolerated Range of motion restrictions: Hip precaution positions to prevent dislocation: No flexing forward past 90, no crossing the legs at the knee, no active abduction for 6 weeks after surgery Discharge Assist Device: Other (pillow between the knees when in bed) Dressing and Incisional Care Discharge Dressing Care: Keep dressing clean, dry & intact Discharge Hygiene: May shower (see instructions below), DO NOT soak incision under water (for 2 weeks), NO bathtub, hot tub or whirlpool (for 2 weeks) Additional Instructions Discharge Instructions Weightbearing: Weightbearing as tolerated with walker DVT prophylaxis: aspirin 325 mg twice a day 6 weeks Regular pillow between the knees when in bed Wound care: Dressing was changed on . Reuse the Silver pad with a new long bandage after showering. Handle the dressing by the corners. Do not touch the wound with bare hands. Analgesia: oral Dilaudid for 2 weeks Activity: increase your walking a little more each day Patient chronically takes hydrocodone for her back pain. We will plan on discharging her home with oral Dilaudid to use instead of the hydrocodone for a couple of weeks. By then she should be able to return to her usual dose of hydrocodone. On Saturday the patient may shower if the wound has no drainage present. Wound may be uncovered to shower. Let soap and water run over the wound, pat dry and apply a new dressing. Follow Up Plan Follow Up Plan Follow-up plan: In 2 weeks at [facility] with GRAHAM for wound check and at [address] Rice with x-rays Call your provider for: Fever, Chills, Shortness of breath, Vomitting, Drainage at incision, Wound redness (that is spreading), Increasing pain, Other (right leg does not work) Deb Wooten PA-C July 05, 2016 11:59
[2016-07-05] MEDS ORDERED: HYDR2TAB27 PO (12:10)
[2016-07-05] MEDS ORDERED: Aspirin-Expunged Drug, Do Not Renew! PO (12:11)
[2016-07-05] MEDS ORDERED: ONDA4TAB9 PO (12:11)
[2016-07-05] MEDS ORDERED: HYDR-3797 PO (12:11)
--- NOTE | 2016-07-05 14:45 | NUR ---
spiritual care: routine pt agreeable for eucharistic visitor. brief conversational visit/report.
[2016-07-05] MEDS: 0.9% Sodium Chloride 1,000 ML IV SCH (14:53)
--- NOTE | 2016-07-05 15:26 | NUR ---
Social Work- Readiness for Discharge Data: EMR reviewed. Pt is on day 2 of hospitalization for right hip instability per H&P. Pt is POD 2 s/p total hip. Pt is not medically ready for discharge, anticipate tomorrow. RN notified pt of concerns related to pt's discharge and caregiving at home. T/C to pt's daughter Odessa regarding caregiving and discharge plan. Odessa is able to provide supervision to the pt over the weekend and has also enlisted neighbors to monitor pt. Odessa also expressed concerns related to 10/09 care, ASSISTANT WOMEN'S BASKETBALL COACH spoke with her regarding private pay caregivers and solidifying pt's caregiving schedule at home. ASSISTANT [employer]OMEN[employer]S BASKET[employer] COACH spoke with Ortho PA regarding pt's anterior and posterior hip precautions. PA states that most important goal of ambulating for pt is ambulating with fww. PT has seen pt, pt has ambulated approximately 35 feet with fww. Ortho PA agreeable to pt receiving PT for reinforcement of hip precautions. ASSISTANT [employer]S BASKET[employer] COACH spoke with pt at bedside regarding this. Pt requested referral to be made to [facility]. ASSISTANT WOMEN'S BASKETBALL COACH spoke with [facility] whose PT schedule is out until 14 JULY. Pt requested referral to be made to [facility], T/C to Lakeisha at [facility]. [facility] would not be able to see patient until 10 JULY. Pt is not agreeable to using [facility]. ASSISTANT WOMEN'S BASKETBALL COACH to follow up with final determination of needs at discharge, pt likely to discharge home with daughter and neighbor caregiving support vs. home health. ASSISTANT WOMEN'S BASKETBALL COACH will continue to follow. Assessment: Pt who will return home with daughter and neighbor support Plan: ASSISTANT [employer]OMEN[employer]S BASKETB[employer] COACH to follow up with final determination of needs at discharge, pt likely to discharge home with daughter and neighbor caregiving support vs. home health. ASSISTANT WOMEN'S BASKETB[employer] COACH will continue to follow. Unique Greco, ASSISTANT WOMEN[employer] BASKET[employer] COACH
[2016-07-05 16:59] VITALS: BP 113/68; PULSE 94; RESP 16; O2SAT 90
--- NOTE | 2016-07-05 18:10 | NUR ---
Activity / Ad Hose Ad Hose measured and applied, pt complains that it is pinching her and too tight. Removed ad hose and reapplied SCDs. Pt up to BSC multiple times this shift. Able to increase her independence each time. Pain meds have been changed and pt is now taking PO dilaudid and vistaril. This keeps patient at a tolerable level. Bed is down and locked, call light w/in reach.
--- NOTE | 2016-07-05 18:21 | NUR ---
Mobility/Pain Pt OOB to BSC multiple times throughout the day with minimal assistance. Pt knowledgeable and able to demonstrate movement/transferring properly to manage her hip post-op. Pt had improved mobility getting OOB throughout the day. Pain has been at a manageable level with PO Dilaudid and Vistaril, see pain assessment. VSS, Call light within reach, bed locked/low.
[2016-07-05 19:45] VITALS: BP 112/61; PULSE 96; RESP 16; O2SAT 92
[2016-07-06] MEDS: 0.9% Sodium Chloride 1,000 ML IV SCH ×3 (00:53→20:53)
[2016-07-06] MEDS: Sodium Chloride LOK Flush 10 mL Syringe IV SCH ×3 (01:20→16:30)
[2016-07-06] MEDS: hydrOXYzine Pamoate 25 mg Capsule PO PRN ×6 (02:05→23:11)
--- NOTE | 2016-07-06 03:27 | NUR ---
mobility/urination Pt has been up to BSC multiple times this shift, she is also using the bed byrne at this point. She is having urgency with minimal output. No pain with urination. Urine is cloudy and dark. Encouraged fluids and advised that I would have the AM nurse speak to her surgeon about checking her urine for infection. Pt had to be reminded to use her hip precautions and to call for help. Pt attempted multiple times to self transfer from BS and was found midway and assisted safely to bed Pain being controlled with PO dilaudid and vistaril
[2016-07-06 05:18] VITALS: BP 141/69; PULSE 94; RESP 16; O2SAT 94
--- NOTE | 2016-07-06 08:08 | PCM.PNORTH ---
Subjective Date of Service: July 06, 2016 Visit Information: Reason for Visit Right Hip Instability Surgery/Surgery Date Post-Op Day # Date of Admission: July 03, 2016 at 15:24 Hospital Day # Subjective Found patient awake and alert supine in bed and well-positioned. No complaints of pain at this time. Discussed likely discharged today to home with home health physical therapy and nursing and patient is agreeable to this. I have explained to patient that I will speak with social work faculty member to ensure that these things are in place and that she will likely discharged today. I will also encourage patient to participate for with physical therapy today in an effort to regain additional strength and mobility prior to discharge. Postop General: No Complaints, No Shortness of Breath, No Chest Pain, Good Appetite Pain Management: PO Objective Exam Objective Alert and oriented 3 and pleasant. Postoperative dressing is clean and dry and slightly loosened. Calf and thigh are soft and nontender Toe wiggle and sensation are intact to right lower extremity distally Glo hose in place. SCDs in place Hutchins absent Vital Signs and I/O Vital Sign - Last Date Time Temp Pulse Resp B/P Pulse Ox O2 Delivery O2 Flow Rate FiO2 07/06/16 05:18 36.7 94 16 141/69 94 Room Air 07/04/16 12:07 3.00 Intake and Output 07/05/16 07/05/16 07/06/16 Cumulative From/Thru 15:00 23:00 07:00 06/28/16 10:51 - 07/06/16 06:01 Intake Total 1371 ml 750 ml 9828 ml Output Total 1500 ml 1850 ml 6490 ml Balance -129 ml -1100 ml 3338 ml Intake Oral 1260 ml 750 ml 5280 ml IV Total 111 ml 4548 ml Output Urine Total 1500 ml 1850 ml 6390 ml Estimated Blood Loss 100 ml # Bowel Movements 2 2 Lab & Micro Results Microbiology 07/03/16 Gram Stain - Final, Resulted 07/03/16 Culture & Sensitivity - Preliminary, Resulted 07/03/16 Anaerobic Culture - Preliminary, Resulted Result Diagram: 07/05/1652107/05/16521 General Appearance: Alert, Oriented X3, Cooperative, No Acute Distress Extremities: No Compartment Syndrom Noted, Thigh & Calf Soft/Nontender Postop Sensory Motor: Distal Motor Intact, Movement in Toes, Distal Sensation Intact Activity: Activity per PT, Ambulate with PT (weightbearing as tolerated on the right lower extremity using front wheeled walker with anterior and posterior hip precautions.) Catheters: None Assessment & Plan Impression Patient is a 76-year-old female with a history of dislocations who was undergone a right revision total hip arthroplasty on 07/03/2016. She has performed daily 75-100 feet with physical therapy on 07/05/2016 and receives recommendation for discharge to home with home health PT Problems: Plan Postoperative day #3 from right revision total hip arthroplasty performed on by Dr. Gagan Rice. Continue weightbearing as tolerated on the right lower extremity using a front wheeled walker and anterior and posterior hip precautions secondary to history of posterior dislocations and anterior approach Continue formal physical therapy for mobility, gait and safety. Maintain pillow between knees while in bed. Continue ASA 325 mg EC by mouth twice a day 6 weeks postop for DVT prophylaxis. Continue Dilaudid by mouth for pain for 2 weeks postop and then patient will transition back likely to [place]. Continue Vistaril 25 mg 1-2 every 4 hours. Nursing please change hip dressing prior to discharge. Follow-up in 2 weeks at [facility] orthopedic clinic with mid-level provider for wound check and suture removal. Follow-up in 6 weeks at [facility] orthopedic clinic with Dr. Gagan Rice with AP pelvis and right cross table lateral hip x-rays on arrival. Discharge today on 07/06/2016 to home with family and friends as caregivers and home health physical therapy and nursing.. VTE Prophylaxis: SCDs, GLO Hose, Other (ASA 325 EDC by mouth twice a day 6 weeks postop for DVT prophylaxis) Resuscitation Status: CPR: Attempt Resuscitation Lang Mejia PA-C July 06, 2016 08:08
--- NOTE | 2016-07-06 08:48 | PCM.DC.ORT ---
Discharge Summary Date of Service: July 06, 2016 Date of Hospital Admission: July 03, 2016 at 15:24 Date of Surgery: July 03, 2016 Date of Discharge: July 06, 2016 Reason for Hospitalization: Right hip instability Procedures Performed: Right revision total hip arthroplasty Hospital Course: Patient was admitted to the hospital for an appropriate unit on 07/03/2016 and upon processing was transferred to the operating room where her procedure was performed without incident. Upon awakening patient was taken to the postoperative care unit and upon recovery from anesthesia she was transferred orthopedic care unit where she participated with formal physical therapy and received a recommendation for discharge to home with home health. Patient was subsequently discharged on 07/06/2016 Problems: (1) Recurrent dislocation of hip joint prosthesis Status: Acute ICD Code: T84.029A Disposition: Discharge to home with home health physical therapy and nursing and family and friends as caregiver. Orthopedic Follow up Plan: In Two Weeks in my clinic (follow-up in 2 weeks at [facility] orthopedic clinic on prearranged appointment for wound check and suture removal.) Discharge Instructions: Postoperative day #3 from right revision total hip arthroplasty performed on by Dr. Gagan Rice. Continue weightbearing as tolerated on the right lower extremity using a front wheeled walker and anterior and posterior hip precautions secondary to history of posterior dislocations and anterior approach Continue formal physical therapy for mobility, gait and safety. Maintain pillow between knees while in bed. Continue ASA 325 mg EC by mouth twice a day 6 weeks postop for DVT prophylaxis. Continue Dilaudid by mouth for pain for 2 weeks postop and then patient will transition back likely to [place]. Continue Vistaril 25 mg 1-2 every 4 hours. Nursing please change hip dressing prior to discharge. Follow-up in 2 weeks at [facility] orthopedic clinic with mid-level provider for wound check and suture removal. Follow-up in 6 weeks at [facility] orthopedic clinic with Dr. Gagan Rice with AP pelvis and right cross table lateral hip x-rays on arrival. Discharge today on 07/06/2016 to home with family and friends as caregivers and home health physical therapy and nursing.. Management Plan: Patient will be seen at 2 weeks, 6 weeks and 12 weeks postoperatively. Patient will be seen when necessary the interim. ([Aspirin-Expunged Drug, Do Not Renew!]) 325 MG TABLET 325 MG PO BID Atorvastatin (Lipitor) 80 Mg Tablet 80 MG PO DAILY Citalopram Hydrobromide (Celexa) 40 Mg Tablet 50 MG PO DAILY Clobetasol Propionate/Emoll (Clobetasol Emollient 0.05% Crm) 15 Gm Cream..g. 1 APPL TOP BID PRN PRN skin irritation Cyclobenzaprine (Cyclobenzaprine) 5 Mg Tablet 5 MG PO TID PRN PRN Spasm Ezetimibe (Zetia) 10 Mg Tablet 10 MG PO DAILY Fluticasone Propionate (Fluticasone Propionate Nasal) 16 Gm [place].susp 1 SPRAY NS BID Gabapentin (Neurontin) 800 Mg Tablet 1,600 MG PO HS Gabapentin (Neurontin) 800 Mg Tablet 800-1,600 MG PO DAILY PRN PRN For Pain Hydromorphone (Dilaudid) 2 Mg Tablet 2-4 MG PO Q3H PRN PRN For Severe Pain Hydroxyzine Pamoate (HydrOXYzine Pamoate) 25 Mg Capsule 25-50 MG PO Q4H PRN PRN For Spasm and/or Restlessness Levothyroxine (Synthroid) 88 Mcg Tablet 88 MCG PO DAILY Lisinopril (Lisinopril) 20 Mg Tablet 20 MG PO DAILY Multivitamin (Multi Vitamin Daily) 1 Each Tablet 1 EACH PO DAILY Harts-3 Fatty Acids/Fish Oil (Harts 3 1,000 mg Softgel) 1 Each Capsule 1 EACH PO DAILY Omeprazole (Omeprazole) 40 Mg Capsule.dr 40 MG PO BID Ondansetron ODT (Zofran ODT) 4 Mg Tablet 4 MG PO Q6H PRN PRN For Nausea Ranitidine (Zantac) 150 Mg Tablet 150 MG PO BID Rituximab (Rituxan) 100 Mg/10 Ml Vial 1,000 MG IV [id number] last infusion 03/2016 Lang Mejia PA-C July 06, 2016 08:48
[2016-07-06] MEDS: Senna-Docusate 8.6-50 mg Tablet PO SCH ×2 (09:19→21:13)
[2016-07-06] MEDS: Pantoprazole 20 mg ER24 Tablet PO SCH (09:19)
--- NOTE | 2016-07-06 10:40 | NUR ---
Social Work- Discharge Data: EMR reviewed. Pt is on day 3 of hospitalization for right hip instability per H&P. Pt is POD 3. Pt is medically stable to discharge today, discharge orders are in. TAPE MAKER placed call to pt's daughter Odessa [phone], left message informing Odessa of pt's discharge today. TAPE MAKER spoke with Ortho PA regarding pt's HH services, Ortho PA believes that continued education of hip precautions, improved stability, and gait training would benefit pt at discharge. TAPE MAKER updated PA that services would not be able to begin until 10 July. Ortho PA agreeable to this, as pt's daughter will be available to her over the weekend. TAPE MAKER spoke with pt at bedside regarding discharge, HH. Pt is agreeable to [facility] services. Pt is also working with Dar [facility] and her local [employer] to obtain a BSC and potentially a hospital bed to rent. Pt informed TAPE MAKER that her daughter is coordinating the hospital bed, requested TAPE MAKER look up contact information for Dar and the [employer] in [place], TAPE MAKER provided this contact information. T/C to Lakeisha Ambrocio, [facility] liaison [phone] regarding pt's discharge, Lakeisha agreeable. TAPE MAKER and UR Specialist faxed discharge orders, F2F, and necessary clinical information to [phone]. F2F placed in hard chart. Pt to discharge home with [facility] and daughter to transport via POV. Assessment: Pt for whom [facility] is medically indicated. Plan: Pt to discharge home with [facility] and daughter to transport via POV. TAPE MAKER and UR Specialist faxed discharge orders, F2F, and necessary clinical information to [phone]. F2F placed in hard chart. All updated and agreeable to plan. HUA Stevenson Addendum: 07/06/16 at 1526 by ADRIANA GRECO Discharge Cancelled Data: Pt's discharge orders have been cancelled. SW was notified by PT that pt is unable to complete stair training, requiring wheelchair transport back to room as pt had 9/10 pain. SW spoke with Ortho PA regarding pt, Ortho requesting that pt completes afternoon PT and he be updated. Pt worked with PT this afternoon and continues to have step 2 gait during ambulating with fww. Pt ambulated 50 feet CGA with pain present. No stairs were attempted at this time. SW spoke with Ortho PA who feels that pt requires one more night of pain management, continued training with PT, and pt may be discharged tomorrow POD 4. VISH spoke with pt at bedside regarding this, pt states understanding. SW spoke with pt confirming number of stairs into her home. Pt states that she has 8 steps to get into a single story home, but her daughter next door does not have any steps and she may be able to stay in her daughters home for a week while she continues strengthening. Pt declined having SW contact daughter to update her of discharge plan, pt states she will do this. VISH spoke with Lakeisha at [facility] regarding pt's change in discharge, Lakeisha agreeable and states that pt's open date is Saturday. All updated and agreeable to plan. Assessment: Pt who will discharge home tomorrow with [facility] RN PT Plan: Pt's discharge orders have been cancelled. Pt to discharge home tomorrow with [facility] RN PT to open on SaturdayJuly 10. [facility], RN, Ortho PA, and pt all updated and agreeable to plan. VISH will continue to follow. Unique Greco, TAPE MAKER
[2016-07-06 16:15] VITALS: BP 145/74; PULSE 92; RESP 16; O2SAT 91
--- NOTE | 2016-07-06 19:19 | NUR ---
Mobility/Pain Per NOC RN report, pt was difficult overnight and had been using the bedpan d/t poor mobility. Pt able to get up and down to [facility] and worked with PT twice this shift. Pt hard to read and gauge d/t multiple accounts of how patient acts and/or states she cannot do something she is capable of doing. To be safe, pt not discharge today, continues to take 2mg PO Dilaudid with 50mg PO Vistaril and ice to hip, effective. Pt asking, "do you think I should just go in the bed?" Pt encouraged and educated that she needs to be OOB for void; that she is capable and that she needs to perform these tasks to continue to rebuild her strength up. Pt seems to be understanding of this, but then would ask again about just using the bedpan. Requires encouragement with mobility; appears to perform better with positive reinforcement. Care continues.
[2016-07-06] MEDS: LORazepam 0.5 mg Tablet PO PRN ×2 (21:29→21:37)
[2016-07-06 21:30] VITALS: BP 161/71; PULSE 104; RESP 18; O2SAT 95
[2016-07-07] MEDS: Sodium Chloride LOK Flush 10 mL Syringe IV SCH ×2 (00:30→08:12)
[2016-07-07] MEDS: hydrOXYzine Pamoate 25 mg Capsule PO PRN ×3 (03:41→11:30)
--- NOTE | 2016-07-07 04:15 | NUR ---
Pain/Spasms Pt experiencing increased right hip pain and extreme leg spasms, with increasing anxiety. Dilaudid 2mg and vistaril 50mg were given and in 1.5hrs Pt did not have relief. Phoned orthoGRAHAM gave order for flexeril 5mg q8hrs and ativan 0.25-0.5mg q6hrs. Pt given 0.25mg ativan and flexeril, she was able to relax and sleep, spasms finally subsided. Pt awoke after 3hrs later and had severe spasms and pain again. Vistaril and Dilaudid given. Pt resting. care continues
[2016-07-07 06:15] VITALS: BP 138/72; PULSE 91; RESP 16; O2SAT 93
[2016-07-07] MEDS: 0.9% Sodium Chloride 1,000 ML IV SCH (06:53)
[2016-07-07] MEDS: Pantoprazole 20 mg ER24 Tablet PO SCH (07:33)
--- NOTE | 2016-07-07 08:08 | PCM.PNORTH ---
Subjective Date of Service: July 07, 2016 Visit Information: Reason for Visit Right Hip Instability Surgery/Surgery Date Post-Op Day # Date of Admission: July 03, 2016 at 15:24 Hospital Day # Subjective Found patient awake and poorly positioned in bed. Patient is complaining of spasms in her thighs. Patient appears mildly agitated. When found she had her legs pulled up in an awkward position. I have talked to patient this morning regarding positioning in bed and have encouraged her to get up to chair to change her position. We have discussed that she has had Ativan last night as well as Flexeril and Vistaril. I have discussed with her that I will not provide more Ativan but we will send her home with Flexeril. We have discussed discharged today to her daughter's house which is next door to her home. Her daughter's residence has no steps to enter the home. Postop General: No Shortness of Breath, No Chest Pain, Good Appetite Pain Management: PO Objective Exam Objective Alert and oriented 3 and pleasant. Mildly agitated. Postoperative distress and is clean dry and intact. Thigh and calf are soft and nontender. Toe wiggle and sensation are intact her right lower extremity distally. Family is absent Gait times approximately 100 feet with physical therapy on 07/06/2016. Difficulty managing stairs. Vital Signs and I/O Vital Sign - Last Date Time Temp Pulse Resp B/P Pulse Ox O2 Delivery O2 Flow Rate FiO2 07/07/16 06:15 36.6 91 16 138/72 93 Room Air 07/04/16 12:07 3.00 Intake and Output 07/06/16 07/06/16 07/07/16 Cumulative From/Thru 15:00 23:00 07:00 06/28/16 10:51 - 07/07/16 06:44 Intake Total 1200 ml 700 ml 47318 ml Output Total 1850 ml 950 ml 9290 ml Balance -650 ml -250 ml 2438 ml Intake Oral 1200 ml 700 ml 7180 ml IV Total 4548 ml Output Urine Total 1850 ml 950 ml 9190 ml Estimated Blood Loss 100 ml # Bowel Movements 3 2 7 Lab & Micro Results Microbiology 07/03/16 Gram Stain - Final, Resulted 07/03/16 Culture & Sensitivity - Preliminary, Resulted 07/03/16 Anaerobic Culture - Preliminary, Resulted Result Diagram: 07/05/16 0522 07/05/16521 General Appearance: Alert, Oriented X3, Cooperative, Mild Distress (patient complains of muscle spasms in her thighs.) Extremities: No Compartment Syndrom Noted, Thigh & Calf Soft/Nontender Postop Sensory Motor: Distal Motor Intact, Movement in Toes, Distal Sensation Intact Activity: Activity per PT, Ambulate with PT (weightbearing as tolerated on the right lower extremity using front wheeled walker with anterior and posterior hip precautions.) Catheters: None Assessment & Plan Problems: (1) Recurrent dislocation of hip joint prosthesis Status: Acute ICD Code: T84.029A Plan Postoperative day #4 from right revision total hip arthroplasty performed on by Dr. Gagan Rice. Continue weightbearing as tolerated on the right lower extremity using a front wheeled walker and anterior and posterior hip precautions secondary to history of posterior dislocations and anterior approach Continue formal physical therapy for mobility, gait and safety. Maintain pillow between knees while in bed. Continue ASA 325 mg EC by mouth twice a day 6 weeks postop for DVT prophylaxis. Continue Dilaudid by mouth for pain for 2 weeks postop and then patient will transition back likely to [place]. Continue Vistaril 25 mg 1-2 every 4 hours. Continue Flexeril 5 mg every 8 hours for muscle spasm Nursing please change hip dressing prior to discharge. Follow-up in 2 weeks at [facility] orthopedic clinic with mid-level provider for wound check and suture removal. Follow-up in 6 weeks at [facility] orthopedic clinic with Dr. Gagan Rice with AP pelvis and right cross table lateral hip x-rays on arrival. Discharge today on 07/07/2016 to daughters home with family and friends as caregivers and home health physical therapy and nursing.. VTE Prophylaxis: SCDs, GLO Christiane, Other (ASA 325 EDC by mouth twice a day 6 weeks postop for DVT prophylaxis) Resuscitation Status: CPR: Attempt Resuscitation Lang Mejia PA-C July 07, 2016 08:08
[2016-07-07] MEDS: Senna-Docusate 8.6-50 mg Tablet PO SCH (08:10)
[2016-07-07 08:29] VITALS: BP 126/74; PULSE 89; RESP 18; O2SAT 94
--- NOTE | 2016-07-07 13:16 | NUR ---
Social Work Note: Discharge Data& Assessment: EMR reviewed. Per pt is medically ready for discharge home via POV with [facility], PT. Pt was discharged yesterday, but began experiencing spasms. Pt is now medically ready for discharge today. VISH notified Lakeisha from [facility] of pt discharge today. VISH met with pt at bedside to confirm discharge plan and assess for any other unmet needs. Pt daughter transporting her home today. SW provided pt with [facility] phone number to notify them if she ends up needing to go to her daughters home to recover from this hospitalization. Pt denies any other needs. No other discharge needs identified. Plan: Per pt is medically ready for discharge home via POV with [facility] RN, PT. Pt denies any other needs. No other discharge needs identified. HUA [place]
--- NOTE | 2016-07-07 14:51 | NUR ---
Discharge Pt left with family in stable condition with all belongings at 1305, no IV access, follow up appointment already scheduled, prescriptions given. instructions for dressing changes given.
== END 2016-07-07 12:59 | disposition home health service (06) | DRG 468 ==
LOC: SAS 08:20 → OSC 15:24
PROVIDERS: ADMIT Orthopaedic Surgery; ATTEND Orthopaedic Surgery
PROC: 0SP909Z Removal of Liner from Right Hip Joint, Open Approach (ICD-10-PCS; 2016-07-03)
PROC: 0SUA09Z Supplement Right Hip Joint, Acetabular Surface with Liner, Open Approach (ICD-10-PCS; 2016-07-03)
PROC: 0SPR0JZ Removal of Synthetic Substitute from Right Hip Joint, Femoral Surface, Open Approach (ICD-10-PCS; 2016-07-03)
PROC: 0SRR01A Replacement of Right Hip Joint, Femoral Surface with Metal Synthetic Substitute, Uncemented, Open Approach (ICD-10-PCS; principal; 2016-07-03 09:45)
DX: T84.090A Other mechanical complication of internal right hip prosthesis, initial encounter (principal); M25.351 Other instability, right hip; Z87.891 Personal history of nicotine dependence; M06.9 Rheumatoid arthritis, unspecified